=== PATIENT | female | born 1950 | race Caucasian/White ===

== ENCOUNTER 2019-02-24 06:00 | Day surgery (SDC) | payer OTHER ==
[2019-02-23 09:23] LABS: HEMATOCRIT 37.7 % (36.0-48.0); HEMOGLOBIN 12.5 g/dL (12-16); MCH 29.1 pg (26.0-34.0); MCHC 33.2 g/dL (31.0-37.0); MCV 87.7 fL (80.0-100.0); MEAN PLATELET VOLUME 9.8 fL (7.4-10.4); RBC 4.3 10x6/uL (4.00-5.40); RDW 14.2 % (11.5-14.5)
[2019-02-23 09:34] LABS: APTT 24.9 SECONDS (22.8-39.4); PROTIME 12.7 SECONDS (11.6-15.0)
[~2019-02-24] VITALS: Ht 161.3 cm; Wt 72.6 kg
--- NOTE | ~2019-02-24 | OP ---
PATIENT NAME: MARLENA CANDELARIO MEDICAL RECORD: [id number] :46 LOCATION:D.OPS ADMISSION DATE: SURGEON: LILIANA PATRICK DPM DATE OF OPERATION: 02/24/2019 PREOPERATIVE DIAGNOSES: 1. Hallux abductovalgus, right foot. 2. Plantar plate rupture, right second metatarsophalangeal joint. 3. Hammertoe, right second digit. 4. Hammertoe, right third digit. 5. Hammertoe, right fourth digit. POSTOPERATIVE DIAGNOSES: 1. Hallux abductovalgus, right foot. 2. Plantar plate rupture, right second metatarsophalangeal joint. 3. Hammertoe, right second digit. 4. Hammertoe, right third digit. 5. Hammertoe, right fourth digit. PROCEDURES: 1. Jesús bunionectomy, right foot. 2. Shweta osteotomy, right second met. 3. Plantar plate repair, right second MPJ. 4. PIPJ fusion, right second. 5. PIPJ fusion, right third. 6. PIPJ fusion, right fourth. ANESTHESIA: Preoperative popliteal block per the anesthesia department as well as intraoperative general anesthesia. HEMOSTASIS: Right thigh tourniquet at 350 mmHg. PREOPERATIVE DETAILS: The patient was taken to the OR and placed on the operating table in a supine position. This was followed by induction of general anesthesia. The right extremity was then prepped and draped in usual aseptic technique followed by exsanguination and inflation of tourniquet. PROCEDURE #1: Jesús bunionectomy, right foot. A 15 blade was used to create a 4-cm linear incision over the dorsal aspect of the first ray extending to the base of proximal phalanx of the hallux. The incision was deepened down through subcutaneous tissue to the capsule. An inverted L capsulotomy was performed and the medial capsular flap was reflected and the head of first metatarsal was delivered. A sagittal saw was used to resect the medial eminence. Attention was then directed to the first interspace where a lateral release was performed. At this time, a sagittal saw was used to create a V osteotomy through and through. The capital fragment was translocated laterally and fixated with a 0.062 inch K-wire. The pin was cut. The medial redundant shelf was resected. The wound was flushed. The capsule was repaired with 2-0 Vicryl, the subcutaneous tissue with 4-0 Rapide and the skin was closed with 4-0 Rapide in a subcuticular technique followed by Tapan. PROCEDURE #2: Shweta osteotomy, right second metatarsal. A curvilinear incision was made on the dorsal aspect of the right foot extending from the distal aspect of the second metatarsal distally up on top of the PIPJ of the second digit. The incision was deepened down through subcutaneous tissue being sure to avoid OPERATIVE REPORT [id number] MARLENA CANDELARIO all vital structures. The extensor longus tendon was then visualized and transected in a Z fashion exposing the second MPJ. A 15 blade was used to create a linear capsulotomy in the second MPJ. There was noted to be cystic material and lot of osteoarthritic changes noted. A rongeur was used to clean up the osteophytes. There was noted to be significant degeneration of the head of the second metatarsal with most of the cartilage being eroded. McGlamry scoop elevator was used to free the plantar structures. A sagittal saw was then used to create the Shweta osteotomy from dorsal distal to plantar proximal. The distal fragment was then pushed proximally and temporarily fixated with a K-wire. A second K-wire was then placed in the proximal phalanx of the second digit. PROCEDURE #3: Plantar plate repair, right second MPJ. Initial evaluation did show that there was a tear on the central aspect of the plantar plate. A 15 blade was used to complete the tear. A scorpion passer was used to pass FiberWire through the plantar plate. Two small drill holes were made in the base of the proximal phalanx and the FiberWire was placed up through the drill holes. Surgeon's knots were used to secure the plantar plate with the toe held in a plantarflexed position. Following repair, there was excellent alignment of the digit finishing the Shweta osteotomy. Prior to securing the plantar plate, the Shweta osteotomy was fixated with 2 pop-off screws putting the second metatarsal in a proper anatomical alignment. PROCEDURE #4: PIPJ fusion, right second digit. The incision as described in #2 was utilized. The extensor longus tendon was freed from the dorsal aspect of the second PIPJ. A sagittal saw was used to resect both joint surfaces. A drill hole was made to accommodate the bone graft. The bone graft was placed in the proximal phalanx and the distal aspect of the toe was then placed on top of the bone graft, noting excellent alignment and stability. The wound was flushed. The joint capsule, the second MPJ was repaired with 2-0 Vicryl. The extensor longus tendon was then repaired with 4-0 Rapide and the subcutaneous tissue was reapproximated with 4-0 Rapide and skin was closed with 4-0 Rapide in a subcuticular technique followed by Dermabond. PROCEDURE #5: PIPJ fusion, right third digit. A 15-blade was used to create a transverse incision on the dorsal aspect of the PIPJ. The incision was deepened down to the extensor longus tendon, which was transected exposing the head of the proximal phalanx and the base of middle phalanx. A sagittal saw was used to resect both. K-wire was then placed in both and a small drill hole was made to accommodate the bone graft. Bone graft was placed in the proximal phalanx first and the capital fragment was placed on top of the bone graft, noting excellent alignment as well as stability. The extensor longus tendon was then repaired with 4-0 Rapide. The skin was then reapproximated with 4-0 Rapide in a simple interrupted technique followed by Dermabond. PROCEDURE #6: Procedure was performed as described in 5 without variation and no complication. Adaptic, 4 x 4, and Conform were used to dress the wound followed by application of a modified Fang compression dressing. Tourniquet was deflated. POSTOPERATIVE DETAILS: The patient tolerated the procedure well and left the OR with vital signs stable and vascular status at preoperative levels. The patient was transported to recovery per anesthesia in stable condition. 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
[~2019-02-24 06:00] MED LIST: BAYER CHEWABLE81 MG PO; CELEXA20 MG PO; LEVOTHYROXINE50 MCG PO
[2019-02-24] MEDS ORDERED: CENTRUM SILVER1 EAC3 PO (06:24)
[2019-02-24 06:32] VITALS: BP 163/86; Ht 161.3 cm; Wt 72.6 kg
--- NOTE | 2019-02-24 13:15 | NUR ---
MILD CRACKLES IN LOWER LOBES BILATERALLY
--- NOTE | 2019-02-24 14:07 | NUR ---
IV REMOVED AND PRESSURE HELD DRESSING APPLIED
--- NOTE | 2019-02-24 14:45 | NUR ---
PT VOIDED PRIOR TO GOING HOME
== END 2019-02-24 14:46 | disposition home or self-care (01) ==
LOC: D.OPS 06:00 → D.PAN 09:30 → D.OPS 14:46
PROVIDERS: Anesthesiology; ATTEND Podiatrist
DX: M20.11 Hallux valgus (acquired), right foot (principal); S93.691A Other sprain of right foot, initial encounter; X58.XXXA Exposure to other specified factors, initial encounter; M20.41 Other hammer toe(s) (acquired), right foot; Z01.812 Encounter for preprocedural laboratory examination